=== PATIENT | female | born 1990 | race African-American/Black ===

== ENCOUNTER 2017-01-29 12:42 | Emergency (ER) ==
[2017-01-29] MEDS ORDERED: SODIUM CHLORIDE 0.9% INJ ONE (13:30)
[2017-01-29] MEDS ORDERED: PROTONIX IV ONE (13:30)
[2017-01-29] MEDS ORDERED: NS 1,000 ML IV ONE (13:30)
[2017-01-29] MEDS ORDERED: ZOFRAN IV ONE (13:30)
--- NOTE | 2017-01-29 13:34 | PROVIDER DOCUMENTATION ---
HPI-Abdominal Pain/GI Problem - General Chief Complaint: N/V/D Stated Complaint: N/V Time Seen by Provider: 01/29/17 13:29 Source: patient Allergies/Adverse Reactions: Patient Allergies Allergy/AdvReac Type Severity Reaction Status Date / Time No Known Allergies Allergy Verified 10/09/16 07:34 Home Medications: Home Medication List Medication Instructions Recorded Confirmed Last Taken Type Azithromycin [Zithromax Z-Stuart] 250 mg PO DIRECTED #1 pkg 10/09/16 Unknown Rx Dicyclomine [Bentyl] 10 mg PO AC + HS #20 capsule 01/29/17 Unknown Rx Omeprazole [Prilosec] 20 mg PO DAILY@0700 #20 capsule 01/29/17 Unknown Rx Promethazine [Phenergan] 25 mg PO Q6H PRN PRN #20 tablet 01/29/17 Unknown Rx - History of Present Illness-ABD Nature of Presenting Problems: Pt is a 26 y/o F c chief complaint of epigastric pain, nausea, vomiting, diarrhea x 2-3 days. Pt also reports chills and body aches. Pt denies any medical hx. On arrival, pt is in minimal distress. Review of Systems - Adult - REVIEW OF SYSTEMS - ADULT Constitutional: reports: see HPI, chills, fever, fatique Eyes: reports: no symptoms reported. denies: blurred vision, double vision Ears, Nose, Mouth & Throat: reports: no symptoms reported. denies: ear pain, nose pain, throat pain Cardiovascular: reports: no symptoms reported. denies: chest pain, irregular heart rate Respiratory: reports: no symptoms reported. denies: cough, shortness of breath Gastrointestinal: reports: abdominal pain, diarrhea, nausea, vomiting Genitourinary: reports: no symptoms reported. denies: dysuria, hematuria Musculoskeletal: reports: muscle aches. denies: joint pain, joint swelling Integumentary: reports: no symptoms reported. denies: itching, rash Neurological: reports: no symptoms reported. denies: numbness, paresthesia Psychiatric: reports: no symptoms reported. denies: anxiety, emotional problems Endocrine: reports: no symptoms reported. denies: cold intolerance, heat intolerance Hematologic/Lymphatic: reports: no symptoms reported. denies: blood clots, low blood count Allergic/Immunologic: reports: no symptoms reported. denies: allergic reactions , food allergy All Other Systems: Reviewed and Negative Past History - Adult - PAST MEDICAL HISTORY-ADULT Review of Records: reports: Old Records Reviewed, Nursing Assessment Review, Medications Reviewed, Social history reviewed & non-contributory. Major Childhood Illnesses: reports: denies history Cardiovascular: reports: denies history Respiratory: reports: denies history Gastrointestinal: reports: denies history Obstetrical/Gynecological: reports: ectopic Genitourinary: reports: denies history Musculoskeletal: reports: denies history Neurological: reports: denies history Psychiatric: reports: anxiety Endocrine/Immune: reports: denies history Other Conditions: reports: denies history - PRIOR SURGERIES/PROCEDURES Surgical/Procedure History: reports: reviewed, not pertinent - IMMUNIZATION STATUS Childhood Immunizations: See Nurse Assessment Flu Vaccine: See Nurse Assessment - FAMILY HISTORY Family History: reviewed, not pertinent - SOCIAL HISTORY Smoking: denies Substance Use: none/never Alcohol Use Frequency: never Physical Exam-General - PHYSICAL EXAM-ADULT Initial Vital Signs Reviewed: Yes - CONSTITUTIONAL General Appearance: appears well, alert, no apparent distress - EYES Eyes: PERRL/EOMI, pink conjunctivae - HEAD, EARS, NOSE, MOUTH & THROAT HENMT: normocephalic/atraumatic, moist mucous membranes, normal ENT inspection - NECK Neck: non-tender, normal inspection - RESPIRATORY Respiratory: chest non-tender, lungs clear, normal breath sounds - CARDIOVASCULAR Cardiovascular: normal peripheral pulses, regular rate, rhythm, no edema - GASTROINTESTINAL (ABDOMEN) Abdominal Exam: normal bowel sounds, tenderness (mild tenderness on palpation). negative: mass, hepatomegaly, spleenomegaly, McBurney's point tenderness, Pressley's sign, obturator sign, psoas, Rovsing's sign - LYMPHATIC Lymphatic: no adenopathy - MUSCULOSKELETAL Back Exam: normal inspection, no CVA tenderness, no vertebral tenderness Extremity: normal range of motion, non-tender, normal gait - SKIN Integumentary: normal color, normal turgor, warm/dry - NEUROLOGIC Neurologic: grossly normal, no motor/sensory deficits - PSYCHIATRIC Psych/Mental Status: normal mood/affect, normal thought content, normal thought process, oriented x 3 Progress - PLAN OF CARE/RESULTS Progress/Plan/Lab Results: Orders Category Date Time Status Saline Loc DIRECTED Care 01/29/17 13:29 Active NPO Diet 01/29/17 13:29 Active FLAT/UPRIGHT ABD/1 VIEW CHEST [RAD] Stat Exams 01/29/17 14:55 Ordered AMYLASE [CHEM] Stat Lab 01/29/17 13:27 Completed CBC WITH ELECTRONIC DIFF [HEME] Stat Lab 01/29/17 13:27 Completed COMPREHENSIVE METABOLIC PANEL [CHEM] Stat Lab 01/29/17 13:27 Completed Flu Swab [INFLUENZA SCREEN A/B] Stat Lab 01/29/17 14:56 Uncollected LIPASE [CHEM] Stat Lab 01/29/17 13:27 Completed TEST-URINE [PREG] Stat Lab 01/29/17 13:24 Completed URINALYSIS W/POSS RFLX CULT [URINALYSIS] Stat Lab 01/29/17 13:24 Completed 0.9% Sodium Chloride Inj [Ns] 1,000 ml Med 01/29/17 13:30 Discontinued IV 999 mls/hr Ondansetron [Zofran] Med 01/29/17 13:30 Discontinued 4 mg IV NOW ONE Pantoprazole [Protonix] Med 01/29/17 13:30 Discontinued 40 mg IV NOW ONE Sodium Chloride 0.9% Med 01/29/17 13:30 Discontinued 10 ml INJ NOW ONE Laboratory Tests 01/29/17 01/29/17 01/29/17 13:24 13:24 13:27 WBC RBC Hgb Hct MCV MCH MCHC RDW Std Deviation Plt Count MPV Immature Gran % (Auto) Neut % (Auto) Lymph % (Auto) Kendall % (Auto) Eos % (Auto) Baso % (Auto) Immature Gran # (Auto) Neut # (Auto) Lymph # (Auto) Kendall # (Auto) Eos # (Auto) Baso # (Auto) Sodium 139 Potassium 3.7 Chloride 103 Carbon Dioxide 22 L Anion Gap 14 BUN 8 Creatinine 0.7 Estimated GFR/1.73 m2 > 60 BUN/Creatinine Ratio 11 Glucose 82 Calculated Osmolality 275 Calcium 9.3 Total Bilirubin 0.36 AST 14 ALT 13 Alkaline Phosphatase 64 Total Protein 6.9 Albumin 4.0 Globulin 2.9 Albumin/Globulin Ratio 1.4 Amylase 53 Lipase 12 L Urine Source CLEAN CATCH Urine Color YELLOW Urine Turbidity CLEAR Urine pH 6.0 Ur Specific [place] 1.025 Urine Protein TRACE A Ur Glucose (Stick) NEGATIVE Ur Ketones (Stick) 80 A Urine Blood MODERATE A Urine Nitrite NEGATIVE Urine Bilirubin NEGATIVE Urobilinogen Dipstick NORMAL Urine Leukocytes NEGATIVE Urine WBC (Auto) <10 Urine RBC (Auto) 10-20 A U Epithel Cells (Auto) <10 Urine Bacteria (Auto) NEGATIVE Urine Test NEGATIVE 01/29/17 13:27 WBC 7.63 RBC 4.38 Hgb 12.9 Hct 38.8 MCV 88.6 MCH 29.5 MCHC 33.2 RDW Std Deviation 12.8 Plt Count 250 MPV 10.7 H Immature Gran % (Auto) 0.0 Neut % (Auto) 62.5 Lymph % (Auto) 29.2 Kendall % (Auto) 7.5 Eos % (Auto) 0.5 Baso % (Auto) 0.3 Immature Gran # (Auto) 0.00 Neut # (Auto) 4.77 Lymph # (Auto) 2.23 Kendall # (Auto) 0.57 Eos # (Auto) 0.04 Baso # (Auto) 0.02 Sodium Potassium Chloride Carbon Dioxide Anion Gap BUN Creatinine Estimated GFR/1.73 m2 BUN/Creatinine Ratio Glucose Calculated Osmolality Calcium Total Bilirubin AST ALT Alkaline Phosphatase Total Protein Albumin Globulin Albumin/Globulin Ratio Amylase Lipase Urine Source Urine Color Urine Turbidity Urine pH Ur Specific [place] Urine Protein Ur Glucose (Stick) Ur Ketones (Stick) Urine Blood Urine Nitrite Urine Bilirubin Urobilinogen Dipstick Urine Leukocytes Urine WBC (Auto) Urine RBC (Auto) U Epithel Cells (Auto) Urine Bacteria (Auto) Urine Test Vital Signs - 24 hr 01/29/17 01/29/17 13:20 15:14 Temperature 98.4 F 97.9 F Pulse Rate 76 74 Respiratory 18 16 Rate Blood Pressure 117/93 124/74 O2 Sat by Pulse 100 100 Oximetry - REASSESSMENT Reassessment #1 Time Reassessed: 15:07 (Pt refused x-ray or any other imaging studies. ) Reassessment #2 Time Reassessed: 15:15 (Pt would like to discharge from the ER without any further treatment. She is in no distress and has stable vital signs. ) Reassessment #3 Time Reassessed: 15:26 (Discussed labs c pt. She states she just really needed a work excuse. ) Departure - Departure Time of Disposition Order: 15:16 DIAGNOSIS: Hematuria, Gastroenteritis Disposition: HOME 01 Certified Medical Emergency: Emergent Condition: Stable Additional Instructions: ED Follow Up Instructions: You have been treated by a care provider in the Emergency Department. These instructions are being provided to you so you can have an understanding of how to care for yourself upon discharge. Upon discharge from the Emergency Department, you are responsible for making arrangements for follow-up care by a physician of your choice. Take all prescribed medications as directed. Return to the Emergency Department immediately for any new or worsening symptoms. You may call the Physician Referral phone number at [phone] to obtain a list of Physicians who are taking new patients. Prescriptions: Dicyclomine [Bentyl] 10 mg PO AC + HS #20 capsule Promethazine [Phenergan] 25 mg PO Q6H PRN PRN #20 tablet PRN Reason: Nausea Omeprazole [Prilosec] 20 mg PO DAILY@0700 #20 capsule Referrals: None,PCP [Primary Care Provider] - Attestation - Physician/ NOELLE Attestation Patient care was provided by Advanced Practice Provider:: Yes Advanced Practice Provider:: Jaspreet Gramajo Advanced Practice Provider documentation review:: The Mid-level provider documentation, treatment plan and medical decision making was reviewed by the physician who agrees with all treatment and medical decision making by the MLP.
[2017-01-29 13:43] LABS: MANUAL DIFF NEEDED? NO
[2017-01-29 13:50] LABS: BASO% 0.3 % (0.0-0.8); EOS# 0.04 X1000 (0.0-0.7); EOS% 0.5 % (0.0-10.0); HEMATOCRIT 38.8 % (37.0-47.0); HEMOGLOBIN 12.9 g/dL (12.0-16.0); LYMPH# 2.23 X1000 (1.2-3.4); LYMPH% 29.2 % (20.5-51.1); MCH 29.5 PG (27-31); MCHC 33.2 g/dL (33-37); MCV 88.6 FL (81-99); MONO# 0.57 X1000 (0.11-0.59); MONO% 7.5 % (1.7-9.3); MPV 10.7 FL (7.4-10.4); NEUT% 62.5 % (42.2-75.2); PLT 250 X1000 (130-400); RBC 4.38 XMIL (4.2-5.4)
[2017-01-29 13:59] LABS: URINE CULTURE NEEDED? NO; URINE MICRO REVIEW NEEDED? NO; URINE SOURCE CLEAN CATCH
[2017-01-29 14:07] LABS: UR EPITHELIAL CELLS <10 /HPF (<10); URINE BACTERIA NEGATIVE /HPF; URINE WBC <10 /HPF (<10)
[2017-01-29 14:08] LABS: AGAP 14; ALKALINE PHOSPHATASE 64 U/L (32-104); AMYLASE 53 U/L (20-200); BUN 8 mg/dL (8-22); CALCIUM 9.3 mg/dL (8.8-10.2); CHLORIDE 103 mmol/L (98-107); COSMO 275; GOT 14 U/L (10-30); GPT 13 U/L (10-36); LIPASE 12 U/L (13-60); POTASSIUM 3.7 mmol/L (3.5-5.1); SODIUM 139 mmol/L (136-145); TCO2 22 mmol/L (25-35); TOTAL BILIRUBIN 0.36 mg/dL (0.20-1.00); TOTAL PROTEIN 6.9 g/dL (6.3-8.3)
[2017-01-29 14:17] LABS: BILIRUBIN URINE NEGATIVE (NEGATIVE); BLOOD URINE MODERATE (NEGATIVE); COLOR YELLOW; GLUCOSE URINE NEGATIVE (NEGATIVE); LEUKOCYTES URINE NEGATIVE (NEGATIVE); NITRITE URINE NEGATIVE (NEGATIVE); PROTEIN URINE TRACE mg/dL (NEGATIVE); SP GRAVITY URINE 1.025; TURBIDITY URINE CLEAR (CLEAR); UROBILINOGEN URINE NORMAL (NORMAL)
[2017-01-29 15:15] VITALS: BP 124/74
== END 2017-01-29 15:32 | disposition home or self-care (01) ==
LOC: ED 12:42
DX: K52.9 Noninfective gastroenteritis and colitis, unspecified (principal); R31.9 Hematuria, unspecified; R11.2 Nausea with vomiting, unspecified; R19.7 Diarrhea, unspecified; R10.13 Epigastric pain; M79.1 Myalgia
CPT/HCPCS: 80053; 81001; 81025; 82150; 83690; 85025